=== PATIENT | female | born 1995 | race Caucasian/White ===

== ENCOUNTER 2023-11-16 01:20 | Emergency (ER) | payer MEDICAID ==
[~2023-11-16] VITALS: Ht 182.9 cm; Wt 63.5 kg
[2023-11-16 02:12] VITALS: BP_SYST 119; PULSE 66; RESP 18; TEMP 98.3; O2SAT 99
[2023-11-16 03:44] LABS: BILIRUBIN,URINE NEGATIVE (NEGATIVE); BLOOD, URINE NEGATIVE (NEGATIVE); CLARITY/URINE SL CLOUDY (CLEAR); COLOR,URINE YELLOW (YELLOW); GLUCOSE,URINE NEGATIVE (NEGATIVE); KETONES,URINE TRACE (NEGATIVE); LEUKOCYTE ESTERASE ,URINE NEGATIVE (NEGATIVE); NITRITE, URINE NEGATIVE (NEGATIVE); PROTEIN URINE TRACE (NEGATIVE); UROBILINOGEN,URINE 0.2 (0.2-1.0)
[2023-11-16] MEDS ORDERED: FAMO20TA8 PO (04:19)
[2023-11-16 04:22] LABS: BACTERIA,URINE None Seen /HPF (None Seen)
[2023-11-16 04:43] VITALS: BP_SYST 128; PULSE 88; RESP 18; TEMP 98.2; O2SAT 97
== END 2023-11-16 04:45 | disposition home or self-care (01) ==
LOC: SED 01:20
DX: K29.70 Gastritis, unspecified, without bleeding (principal); R10.13 Epigastric pain; Z79.899 Other long term (current) drug therapy
CPT/HCPCS: 81000; 81001; 81015; 81025; 99283